=== PATIENT | male | born 1990 | race Caucasian/White ===

== ENCOUNTER 2018-05-11 10:16 | Emergency (ER) | payer SELFPAY ==
[2018-05-11] MEDS ORDERED: Iodixanol* (CONTRAST) 320 MG/ML 100 ML SDV IV ONE (10:47)
--- NOTE | 2018-05-11 10:51 | ED ---
Adult Trauma - HPI Summary HPI Summary: This patient is a 27 year [facility] [facility] two [facility] directly [employer]. Pt states he was working on a roof cleaning gutters when he stepped on a patch of ice causing him to fall on the roof. He then slid down the roof on his stomach and attempted to grab the shingles to stop himself, this caused bilateral knee abrasions. He was unsuccessful at stopping himself and landed directly on his back knocking the wind out of him. He laid on his back until EMS arrived. Currently his only complaint is pain at the lumbar spine that is worse with breathing. The patient rates the pain 2/10 in severity. Pt denies LOC, neck pain, ABD pain, and head pain. - History of Current Complaint Chief Complaint: EDTraumaMultiple Stated Complaint: FALL LOWER MID LUMBAR PAIN Time Seen by Provider: 05/11/18 10:17 Hx Obtained From: Patient Mechanism of Injury: Fall Loss of Consciousness: no loss of consciousness Onset/Duration: Started Hours Ago, Still Present Onset of Pain: Immediate Onset Severity: Moderate Current Severity: Mild Pain Intensity: 2 Pain Scale Used: 0-10 Numeric Location: Back Aggravating Factor(s): Deep Breaths Associated Signs & Symptoms: Positive: Negative - LOC and neck pain - Allergy/Home Medications Allergies/Adverse Reactions: Allergies Allergy/AdvReac Type Severity Reaction Status Date / Time No Known Allergies Allergy Verified 05/11/18 10:25 Home Medications: Home Medications Carbamazepine [Tegretol] 200 mg PO BID 05/11/18 [History Confirmed 05/11/18] PMH/Surg Hx/FS Hx/Imm Hx Endocrine/Hematology History: Denies: Hx Unexplained Bleeding, Hx Coagulopothy, Autoimmune Disease Cardiovascular History: Denies: Hx Hypertension, Hx Myocardial Infarction Respiratory History: Denies: Hx Lung Cancer History: Denies: Hx Renal Disease Neurological History: Reports: Hx Seizures Infectious Disease History: No Infectious Disease History: Denies: Traveled Outside the [place] in Last 30 Days - Family History Known Family History: Positive: Hypertension - Social History Occupation: Employed Full-time Alcohol Use: None Substance Use Type: Reports: None Smoking Status (MU): Never Smoked Tobacco Review of Systems Constitutional: Other - fall Negative: Abdominal Pain Musculoskeletal: Negative - neck and head pain Positive: Other - Lumbar pain Positive: Other - abrasions Negative: Syncope All Other Systems Reviewed And Are Negative: Yes Physical Exam - Summary Physical Exam Summary: Appearance: The patient is well-nourished in no acute distress and in no acute pain. Skin: abrasions to bilateral knees, lower ABD, and upper chest anteriorly. HEENT: The head is normocephalic and atraumatic. The pupils are equal and reactive. The conjunctivae are clear and without drainage. Nares are patent and without drainage. Mouth reveals moist mucous membranes and the throat is without erythema and exudate. The external ears are intact. The ear canals are patent and without drainage. The tympanic membranes are intact. Neck: The neck is supple with full range of motion and non-tender. There are no carotid bruits. There is no neck vein distension. Respiratory: Chest is non-tender. Lungs are clear to auscultation and breath sounds are symmetrical and equal. Cardiovascular: Heart is regular rate and rhythm. There is no murmur or rub auscultated. There is no peripheral edema and pulses are symmetrical and equal. Abdomen: The abdomen is soft and non-tender. There are normal bowel sounds heard in all four quadrants and there is no organomegaly palpated. Musculoskeletal: There is no back tenderness noted. Extremities are non-tender with full range of motion. There is good capillary refill. There is no peripheral edema or calf tenderness elicited. Neurological: Patient is alert and oriented to person, place and time. The patient has symmetrical motor strength in all four extremities. Cranial nerves are grossly intact. Deep tendon reflexes are symmetrical and equal in all four extremities. Psychiatric: The patient has an appropriate affect and does not exhibit any anxiety or depression. Triage Information Reviewed: Yes Vital Signs On Initial Exam: Initial Vitals Temp Pulse Resp BP Pulse Ox 98.7 F 89 18 117/93 100 05/11/18 10:19 05/11/18 10:19 05/11/18 10:19 05/11/18 10:19 05/11/18 10:19 Vital Signs Reviewed: Yes Diagnostics - Vital Signs Vital Signs Temp Pulse Resp BP Pulse Ox 05/11/18 10: 85 14 100 05/11/18 10: 98.7 F 89 18 117/93 100 - Laboratory Lab Statement: Any lab studies that have been ordered have been reviewed, and results considered in the medical decision making process. - CT CT ABD/Chest/Pelvis CT Interpretation Completed By: Radiologist Summary of CT Findings: . ACUTE COMPRESSION FRACTURE OF T11 WITHOUT OSSEOUS RETROPULSION. 2. HEPATOMEGALY. 3. DEGENERATIVE DISC DISEASE MOST PRONOUNCED AT L4-L5 AND L5-S1. 4. 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 ED physician has reviewed this radiology report. CT L spine CT Interpretation Completed By: Radiologist Summary of CT Findings: . ACUTE COMPRESSION FRACTURE OF T11 WITHOUT OSSEOUS RETROPULSION. 2. HEPATOMEGALY. 3. DEGENERATIVE DISC DISEASE MOST PRONOUNCED AT L4-L5 AND L5-S1. 4. 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 ED physician has reviewed this radiology report. Re-Evaluation - Re-Evaluation First Eval Re-Evaluation Time: 13:08 Change: Unchanged Comment: The patient is refusing prescriptions when asked what pharmacy he preferred he states that if he needs something he will just ask his family doctor. Adult Trauma Course/Dx - Course Course Of Treatment: Mr. Johnson experienced a significant mechanism of action trauma today. He began to slip while working on a roof and slid down on his stomach, went off the edge and landed on his back. He did not move secondary to pain in his mid back. He denied any other pain or head trauma. He was brought in by ambulance with stable vital signs and nontoxic in appearance. His abdomen was soft and nontender. Exam generally unremarkable except for some mild paralumbar pain and tenderness. Because of the mechanism of action CT was obtained and did reveal a compression fracture of T11 which had no retropulsed portion. This is a stable fracture and he is treated symptomatically with follow-up with orthopedic.. - Diagnoses Provider Diagnoses: Compression fracture of thoracic vertebra Discharge - Sign-Out/Discharge Documenting (check all that apply): Patient Departure - Discharge Plan Condition: Stable Disposition: HOME Prescriptions: LORazepam TAB(*) [Ativan TAB(*)] 1 mg PO BEDTIME #5 tab MDD 4 traMADol TAB* [Ultram*] 50 mg PO Q6HR PRN #20 tab MDD 4 PRN Reason: Pain Patient Education Materials: Vertebral Compression Fracture (ED) Referrals: Adolfo Laird MD [Medical Doctor] - 2 Days Additional Instructions: Use ibuprofen as needed for pain. RETURN TO THE EMERGENCY DEPARTMENT FOR CHANGING OR WORSENING SYMPTOMS - Billing Disposition and Condition Condition: STABLE Disposition: Home - Attestation Statements Document Initiated by Scribe: Yes Documenting Scribe: Fernando Coffey Provider For Whom Antoine is Documenting (Include Credential): Tono Walls MD Scribe Attestation: IFernando , scribed for Tono Walls MD on 05/11/18 at 1730. Scribe Documentation Reviewed: Yes Provider Attestation: The documentation as recorded by the Fernando mcarthur accurately reflects the service I personally performed and the decisions made by me, Tono Walls MD
[2018-05-11] MEDS: Ketorolac INJ* 30 MG/ML 1 ML VIAL IV PUSH ONE ×2 (10:58→12:35)
[2018-05-11 13:28] VITALS: BP 144/80
== END 2018-05-11 13:28 | disposition home or self-care (01) ==
LOC: ED 10:16
DX: S22.080A Wedge compression fracture of T11-T12 vertebra, initial encounter for closed fracture (principal); S80.212A Abrasion, left knee, initial encounter; S80.211A Abrasion, right knee, initial encounter; S30.811A Abrasion of abdominal wall, initial encounter; S20.319A Abrasion of unspecified front wall of thorax, initial encounter; W13.2XXA Fall from, out of or through roof, initial encounter; Y92.008 Other place in unspecified non-institutional (private) residence as the place of occurrence of the external cause; R16.0 Hepatomegaly, not elsewhere classified; M51.36 Other intervertebral disc degeneration, lumbar region; M51.37 Other intervertebral disc degeneration, lumbosacral region; Q60.3 Renal hypoplasia, unilateral; R56.9 Unspecified convulsions
CPT/HCPCS: 71260; 72131; 74177; 96374; 99283; J1885; Q9967